=== PATIENT | female | born 1995 | race Two or more races ===

== ENCOUNTER 2018-01-21 17:34 | Inpatient (IN) ==
[2018-01-21] MEDS ORDERED: LACTATED RINGERS 250 ML IV ONE (17:55)
[2018-01-21] MEDS ORDERED: LACTATED RINGERS 500 ML IV PRN (17:55)
[2018-01-21] MEDS ORDERED: MEPERIDINE 50 MG/1 ML VIAL IM PRN (17:55)
[2018-01-21] MEDS ORDERED: ONDANSETRON 4 MG/2 ML VIAL IV PRN (17:55)
[2018-01-21] MEDS ORDERED: FAMOTIDINE 20 MG/2 ML VIAL IV SCH (18:00)
[2018-01-21] MEDS ORDERED: LACTATED RINGERS 1,000 ML IV SCH ×3 (18:00→18:30)
[2018-01-21] MEDS ORDERED: MEPERIDINE 50 MG/1 ML VIAL ONE (18:01)
[2018-01-21] MEDS ORDERED: AMPICILLIN INJ 2,000 MG in SODIUM CHLORIDE 0.9% 100 ML IV ONE (18:04)
[2018-01-21] MEDS ORDERED: AMPICILLIN 2,000 MG VIAL ONE (18:05)
[2018-01-21] MEDS ORDERED: SODIUM CHLORIDE 0.9% 100 ML IV ONE (18:07)
[2018-01-21] MEDS ORDERED: CITRIC ACID/SODIUM CITRATE 30 ML UDCUP PO ONE (18:19)
[2018-01-21] MEDS ORDERED: LACTATED RINGERS 1,000 ML IV ONE (18:19)
[2018-01-21] MEDS ORDERED: ePHEDrine 50 MG/ML AMP IV PRN (18:19)
[2018-01-21] MEDS ORDERED: hydrOXYzine HCL 25 MG/1 ML VIAL IM PRN (18:20)
[2018-01-21] MEDS ORDERED: PROMETHAZINE 25 MG/1 ML VIAL IM ONE (18:20)
[2018-01-21] MEDS ORDERED: NALOXONE 0.4 MG/ML VIAL IV PRN (18:20)
[2018-01-21] MEDS ORDERED: diphenhydrAMINE 50 MG/1 ML VIAL IV PRN ×2 (18:20)
[2018-01-21 18:29] LABS: Basophils % 0.1 % (0.0-0.8); Hematocrit 36.1 VOL% (35.7-47.0); Hemoglobin 11.5 GM/DL (12.0-16.0); Immature Granulocytes % 0.7 %; Immature Granulocytes Absolute 0.09 #; Lymphocytes # 0.6 10*3/uL (1.4-4.0); Mean Corpuscular HGB Conc 31.9 GM/DL (32-36); Mean Corpuscular Hemoglobin 28 PG (27-34); Mean Corpuscular Volume 86.4 FL (87-102); Mean Platelet Volume 12.4 FL (9.6-12.0); Monocytes # 0.7 10*3/uL (0.11-0.8); Monocytes % 4.9 % (1.7-12.7); Neutrophils # 12.4 10*3/uL (1.4-7.4); Neutrophils % 90.3 % (38.7-73.9); Platelet Count 267 T/CUMM (130-400); Red Blood Count 4.18 MC/CUMM (3.8-5.5); Red Cell Distribution Width 14.8 % (9.3-17.3); White Blood Count 13.7 T/CUMM (4-12)
[2018-01-21] MEDS ORDERED: fentaNYL 2 MCG/ROPIV 0.2% EPID 100 ML EPIDURAL SCH (18:30)
[2018-01-21 18:47] LABS: Albumin 2.9 G/DL (3.4-5.0); Bilirubin,Total 0.4 MG/DL (0.2-1.0); Osmolality,Calculated 273.7 MOS/KG (273-304); Potassium 3.9 MMOL/L (3.5-5.1); Total Protein 7.6 G/DL (6.4-8.3)
[2018-01-21 18:50] LABS: Band Neutrophils 6 % (0-10); Eosinophils 1 % (0-10); Lymphocytes 2 % (20-55); Platelet Estimate Normal; Segmented Neutrophils 87 % (50-85); Total Cells Counted 100
[2018-01-21 18:51] LABS: Anisocytosis Slight
[2018-01-21] MEDS ORDERED: LIDOCAINE 1% 50 ML VIAL ONE (19:19)
[2018-01-21] MEDS ORDERED: miSOPROStol 200 MCG TABLET ONE (19:20)
[2018-01-21] MEDS ORDERED: METHYLERGONOVINE 0.2 MG/1 ML AMP ONE (19:20)
[2018-01-21] MEDS ORDERED: CARBOPROST TROMETHAMINE 250 MCG/ML AMP IM ONE (19:20)
[2018-01-21] MEDS ORDERED: OXYTOCIN/LR 20 UNIT/1,000 ML BAG IV ONE ×2 (19:22→22:52)
[2018-01-21 21:09] LABS: Apearance,Urine CLEAR (Clear); Bilirubin,Urine Negative (Negative); Blood, Urine Negative (Negative); Glucose,Urine (UA) Negative (Negative); Ketones,Urine 80 mg/dL (Negative); Mucus,Urine Occasional /LPF (Occasional); Nitrite,Urine Negative (Negative); Protein,Urine >=500 MG/DL; RBC,Urine 1 /HPF (0-4); Squamous Epithelial Cell,Urine Occasional /HPF (0-10); Urine Color Yellow (Yellow); Urine Specific Gravity 1.028 (1.001-1.035); Urine Urobilinogen < 2.0 EU/DL (0.2-1.0); WBC,Urine 1 /HPF (0-6)
[2018-01-21] MEDS ORDERED: ACETAMINOPHEN 325 MG TABLET PO PRN (21:38)
[2018-01-21] MEDS ORDERED: oxyCODONE/ACETAMINOPHEN 5-325 MG TABLET PO PRN ×2 (21:38)
[2018-01-21] MEDS ORDERED: BENZOCAINE 20%/MENTHOL 0.5% SPRAY 56 GM CAN TOP PRN (21:38)
[2018-01-21] MEDS ORDERED: WITCH HAZEL PADS 100/JAR TOP PRN (21:38)
[2018-01-21] MEDS ORDERED: LANOLIN 50% CREAM 0.3 OZ TUBE TOP PRN (21:38)
[2018-01-21] MEDS ORDERED: MEASLES/MUMPS/RUBELLA VACCINE 0.5 ML VIAL SUBCUT ONE (21:38)
[2018-01-21] MEDS ORDERED: HYDROCORTISONE 2.5% RECTAL CREAM 30 GM TUBE TOP PRN (21:38)
[2018-01-21] MEDS ORDERED: RHO(D) IMMUNE GLOBULIN 300 MCG SYRINGE IM ONE (21:38)
[2018-01-21] MEDS ORDERED: DIPH/TET/ACEL PERT BOOSTER VACCINE 0.5 ML VIAL IM ONE (21:38)
[2018-01-21] MEDS ORDERED: ACETAMINOPHEN/CODEINE 300-30 MG TABLET PO PRN (21:38)
[2018-01-21] MEDS ORDERED: IBUPROFEN 800 MG TABLET PO PRN (21:38)
[2018-01-21] MEDS ORDERED: BISACODYL 10 MG SUPP RECTAL PRN (21:38)
[2018-01-21] MEDS: DOCUSATE SODIUM 100 MG CAPSULE PO SCH (23:50)
[2018-01-22 06:22] LABS: Basophils % 0.1 % (0.0-0.8); Eosinophils % 0.1 % (0.00-10.9); Hemoglobin 9.5 GM/DL (12.0-16.0); Immature Granulocytes % 0.5 %; Immature Granulocytes Absolute 0.08 #; Lymphocytes # 1.1 10*3/uL (1.4-4.0); Lymphocytes % 6.8 % (21.3-54.2); Mean Corpuscular HGB Conc 31.7 GM/DL (32-36); Mean Corpuscular Hemoglobin 28 PG (27-34); Mean Corpuscular Volume 87.2 FL (87-102); Monocytes # 1.1 10*3/uL (0.11-0.8); Monocytes % 6.9 % (1.7-12.7); Neutrophils # 13.1 10*3/uL (1.4-7.4); Neutrophils % 85.6 % (38.7-73.9); Platelet Count 224 T/CUMM (130-400); Red Blood Count 3.44 MC/CUMM (3.8-5.5); White Blood Count 15.4 T/CUMM (4-12)
[2018-01-22] MEDS: DOCUSATE SODIUM 100 MG CAPSULE PO SCH ×2 (08:51→20:36)
[2018-01-22] MEDS: FERROUS SULFATE 325 MG TABLET PO SCH ×2 (08:57→20:36)
[2018-01-23 07:19] VITALS: BP 116/76
[2018-01-23] MEDS: DOCUSATE SODIUM 100 MG CAPSULE PO SCH ×2 (08:26→20:40)
[2018-01-23] MEDS: FERROUS SULFATE 325 MG TABLET PO SCH ×2 (08:26→20:40)
[2018-01-23] MEDS ORDERED: INFLUENZA VIRUS VACCINE 0.5 ML SYRINGE IM ONE (10:34)
== END 2018-01-23 21:23 | disposition home or self-care (01) | DRG 807 ==
LOC: N.LDOUT 17:34 → N.LD 17:36 → N.OB 22:48
PROVIDERS: ADMIT Obstetrics & Gynecology; ATTEND Obstetrics & Gynecology

== ENCOUNTER 2020-10-29 04:35 | Inpatient (IN) ==
[2020-10-29] MEDS ORDERED: MEPERIDINE 50 MG/1 ML VIAL IV PRN (04:47)
[2020-10-29] MEDS ORDERED: BUTORPHANOL 2 MG/ML VIAL IV PRN (04:47)
[2020-10-29] MEDS ORDERED: ONDANSETRON 4 MG/2 ML VIAL IV PRN (04:47)
[2020-10-29] MEDS ORDERED: LACTATED RINGERS 500 ML IV PRN (04:47)
[2020-10-29] MEDS ORDERED: LACTATED RINGERS 1,000 ML IV SCH (05:00)
[2020-10-29 05:24] LABS: Bilirubin,Urine Negative (Negative); Blood, Urine Negative (Negative); Glucose,Urine (UA) Negative (Negative); Ketones,Urine 20 mg/dL (Negative); Mucus,Urine Many /LPF (Occasional); Nitrite,Urine Negative (Negative); Protein,Urine 30 MG/DL; RBC,Urine 2 /HPF (0-4); Squamous Epithelial Cell,Urine Occasional /HPF (0-10); Urine Appearance CLEAR (Clear); Urine Color Yellow (Yellow); Urine Specific Gravity 1.029 (1.001-1.035)
[2020-10-29 05:46] LABS: Basophils % 0.1 % (0.0-0.8); Eosinophils # 0.1 10*3/uL (0.0-0.87); Eosinophils % 0.7 % (0.00-10.9); Hematocrit 33.9 VOL% (35.7-47.0); Hemoglobin 10.8 GM/DL (12.0-16.0); Immature Granulocytes % 0.7 %; Immature Granulocytes Absolute 0.05 #; Lymphocytes % 14.3 % (21.3-54.2); Mean Corpuscular HGB Conc 31.9 GM/DL (32-36); Mean Corpuscular Volume 87.1 FL (87-102); Mean Platelet Volume 11.7 FL (9.6-12.0); Monocytes % 7.3 % (1.7-12.7); Neutrophils % 76.9 % (38.7-73.9); Platelet Count 235 T/CUMM (130-400); Red Blood Count 3.89 MC/CUMM (3.8-5.5); Red Cell Distribution Width 14.1 % (9.3-17.3); White Blood Count 7.3 T/CUMM (4-12)
[2020-10-29] MEDS: OXYTOCIN/LR 20 UNIT/1,000 ML BAG IV SCH ×2 (05:54→15:38)
[2020-10-29 06:18] LABS: Alanine Aminotransferase 72 U/L (13-56); Albumin 2.6 G/DL (3.4-5.0); Alkaline Phosphatase 171 U/L (45-117); Aspartate Amino Transferase 42 U/L (0-37); Bilirubin,Total < 0.39 MG/DL (0.20-1.00); Blood Urea Nitrogen 7 MG/DL (7-18); Calcium 8.7 MG/DL (8.5-10.1); Carbon Dioxide 23 MMOL/L (21-32); Estimated Glom Filtration Rate 189 ML/MIN; Glucose 91 MG/DL (74-106); Potassium 3.5 MMOL/L (3.5-5.1); Sodium 136 MMOL/L (136-145); Total Protein 7.2 G/DL (6.4-8.2)
[2020-10-29] MEDS ORDERED: FAMOTIDINE 20 MG/2 ML VIAL IV ONE (09:18)
[2020-10-29] MEDS ORDERED: ePHEDrine 50 MG/ML VIAL IV PRN (09:18)
[2020-10-29] MEDS ORDERED: diphenhydrAMINE 50 MG/1 ML VIAL IV PRN ×2 (09:18)
[2020-10-29] MEDS ORDERED: LACTATED RINGERS 1,000 ML IV ONE (09:18)
[2020-10-29] MEDS ORDERED: CITRIC ACID/SODIUM CITRATE 30 ML UDCUP PO ONE (09:18)
[2020-10-29] MEDS ORDERED: NALOXONE 0.4 MG/ML VIAL IV PRN (09:18)
[2020-10-29] MEDS ORDERED: fentaNYL 2 MCG/ROPIV 0.2% EPID 100 ML EPIDURAL SCH (09:30)
[2020-10-29] MEDS ORDERED: miSOPROStoL 200 MCG TABLET ONE ×2 (11:52→11:53)
[2020-10-29] MEDS ORDERED: TRANEXAMIC ACID 1,000 MG/10 ML VIAL ONE (11:52)
[2020-10-29] MEDS ORDERED: SODIUM CHLORIDE 0.9% 0 ML IV ONE (11:52)
[2020-10-29] MEDS ORDERED: METHYLERGONOVINE 0.2 MG/1 ML AMP ONE (11:53)
[2020-10-29] MEDS ORDERED: CARBOPROST TROMETHAMINE 250 MCG/ML AMP IM ONE (11:53)
[2020-10-29 12:10] LABS: Cord Arterial Blood HCO3 22.6 MMOL/L
[2020-10-29 12:12] LABS: Cord Venous Blood HCO3 24.8 MMOL/L; Cord Venous Blood PCO2 43.6 MMHG; Cord Venous Blood PO2 26.9 MMHG
[2020-10-29 12:25] LABS: Bacteria,Urine Occasional /HPF (Few); Bilirubin,Urine Negative (Negative); Blood, Urine Negative (Negative); Glucose,Urine (UA) Negative (Negative); Ketones,Urine 80 mg/dL (Negative); Mucus,Urine Many /LPF (Occasional); Nitrite,Urine Negative (Negative); Protein,Urine 30 MG/DL; RBC,Urine 13 /HPF (0-4); Squamous Epithelial Cell,Urine Occasional /HPF (0-10); Urine Appearance CLEAR (Clear); Urine Color Yellow (Yellow); Urine Specific Gravity 1.028 (1.001-1.035)
[2020-10-29] MEDS ORDERED: OXYTOCIN/LR 20 UNIT/1,000 ML BAG IV ONE (15:59)
[2020-10-29] MEDS ORDERED: ACETAMINOPHEN 325 MG TABLET PO PRN (15:59)
[2020-10-29] MEDS ORDERED: WITCH HAZEL PADS 100/JAR TOP PRN (15:59)
[2020-10-29] MEDS ORDERED: LANOLIN 50% CREAM 0.3 OZ TUBE TOP PRN (15:59)
[2020-10-29] MEDS ORDERED: RHO(D) IMMUNE GLOBULIN 300 MCG SYRINGE IM ONE (15:59)
[2020-10-29] MEDS ORDERED: DIPH/TET/ACEL PERT BOOSTER VACCINE 0.5 ML VIAL IM ONE (15:59)
[2020-10-29] MEDS ORDERED: BISACODYL 10 MG SUPP RECTAL PRN (15:59)
[2020-10-29] MEDS ORDERED: MEASLES/MUMPS/RUBELLA VACCINE 0.5 ML VIAL SUBCUT ONE (15:59)
[2020-10-29] MEDS ORDERED: BENZOCAINE 20%/MENTHOL 0.5% SPRAY 56 GM CAN TOP PRN (15:59)
[2020-10-29] MEDS ORDERED: HYDROCORTISONE 2.5% RECTAL CREAM 30 GM TUBE TOP PRN (15:59)
[2020-10-29] MEDS ORDERED: oxyCODONE/ACETAMINOPHEN 5-325 MG TABLET PO PRN (15:59)
[2020-10-29] MEDS: IBUPROFEN 800 MG TABLET PO PRN ×2 (17:36→23:32)
[2020-10-29] MEDS: oxyCODONE/ACETAMINOPHEN 5-325 MG TABLET PO PRN (22:09)
[2020-10-29] MEDS: DOCUSATE SODIUM 100 MG CAPSULE PO SCH (22:09)
[2020-10-30] MEDS: oxyCODONE/ACETAMINOPHEN 5-325 MG TABLET PO PRN ×4 (04:32→23:14)
[2020-10-30 06:18] LABS: Basophils % 0.3 % (0.0-0.8); Eosinophils # 0.1 10*3/uL (0.0-0.87); Eosinophils % 1.8 % (0.00-10.9); Hematocrit 31.1 VOL% (35.7-47.0); Hemoglobin 9.6 GM/DL (12.0-16.0); Immature Granulocytes % 0.8 %; Immature Granulocytes Absolute 0.06 #; Lymphocytes # 1.5 10*3/uL (1.4-4.0); Lymphocytes % 18.9 % (21.3-54.2); Mean Corpuscular HGB Conc 30.9 GM/DL (32-36); Mean Corpuscular Volume 87.9 FL (87-102); Monocytes % 6.9 % (1.7-12.7); Neutrophils % 71.3 % (38.7-73.9); Platelet Count 227 T/CUMM (130-400); Red Blood Count 3.54 MC/CUMM (3.8-5.5); Red Cell Distribution Width 14.2 % (9.3-17.3); White Blood Count 7.7 T/CUMM (4-12)
[2020-10-30] MEDS: DOCUSATE SODIUM 100 MG CAPSULE PO SCH ×2 (08:32→22:50)
[2020-10-30] MEDS: IBUPROFEN 800 MG TABLET PO PRN ×3 (08:32→23:14)
[2020-10-31] MEDS: IBUPROFEN 800 MG TABLET PO PRN (07:50)
[2020-10-31] MEDS: oxyCODONE/ACETAMINOPHEN 5-325 MG TABLET PO PRN (07:50)
[2020-10-31 07:55] VITALS: BP 128/80
[2020-10-31] MEDS: DOCUSATE SODIUM 100 MG CAPSULE PO SCH (08:37)
== END 2020-10-31 14:20 | disposition home or self-care (01) | DRG 807 ==
LOC: N.LD 04:35 → N.OB 15:45
PROVIDERS: ADMIT Obstetrics & Gynecology; ATTEND Obstetrics & Gynecology